=== PATIENT | female | born 1960 | race Native Hawaiian/Other Pacific Islander ===

== ENCOUNTER 2021-08-27 10:30 | Outpatient (CLI) | payer BC | END 2021-08-27 18:51 | disposition home or self-care (01) | LOC: MAMMO 10:30 | PROVIDERS: ATTEND Internal Medicine | DX: Z12.31 Encounter for screening mammogram for malignant neoplasm of breast (principal); Z13.820 Encounter for screening for osteoporosis ==

== ENCOUNTER 2021-09-14 09:09 | Outpatient (CLI) | payer BC, OTHER | END 2021-09-14 20:26 | disposition home or self-care (01) | LOC: US 09:09 | PROVIDERS: ATTEND Internal Medicine | DX: R92.8 Other abnormal and inconclusive findings on diagnostic imaging of breast (principal) ==

== ENCOUNTER 2022-12-23 10:14 | Outpatient (CLI) | payer BC, OTHER | END 2022-12-23 19:44 | disposition home or self-care (01) | LOC: MAMMO 10:14 | PROVIDERS: ATTEND Internal Medicine | DX: Z12.31 Encounter for screening mammogram for malignant neoplasm of breast (principal); R92.8 Other abnormal and inconclusive findings on diagnostic imaging of breast ==

== ENCOUNTER 2023-04-16 09:05 | Outpatient (CLI) | payer BC, OTHER | END 2023-04-16 21:19 | disposition home or self-care (01) | LOC: US 09:05 | PROVIDERS: ATTEND Internal Medicine | DX: M79.605 Pain in left leg (principal); M25.562 Pain in left knee; M25.552 Pain in left hip ==